=== PATIENT | female | born 1985 | race Two or more races ===

== ENCOUNTER 2025-01-24 09:22 | Emergency (ER) | payer OTHER ==
[~2025-01-24] VITALS: Ht 152.4 cm; Wt 99.8 kg
[2025-01-24 10:51] VITALS: BP 127/86; PULSE 86; RESP 18; TEMP 98.7; O2SAT 100
[2025-01-24] MEDS ORDERED: CLIN1CAP70 PO (10:57)
[2025-01-24] MEDS ORDERED: ERY05OO OP (10:57)
--- NOTE | 2025-01-24 10:58 | ED.PDOC ---
History of Present Illness HPI Comments 39-year-old female previously healthy presents with 3 days of worsening right eye discharge and erythema around her eye. Patient reports she felt a scratchy in the medial aspect of her eye 3 days ago and since then her eyes continued to worsen. She saw her primary care doctor who prescribed her eyedrops however the pharmacy did not have them to fill. Chief Complaint: Eye Problem Time Seen by MD: 09:53 Allergies: Coded Allergies: NO KNOWN ALLERGIES (Unverified , 01/24/25) Mode of Arrival: Ambulatory All Other Systems: Reviewed and Negative Physical Exam General Appearance: Normal HEENT: PERRL/EOMI, Other (Erythema surrounding the right eye associated with conjunctivitis of the right eye. Patient has normal vision another right eye) Neck: Non-Tender Respiratory: No Respiratory Distress Cardiovascular: No Edema Breast Exam: Deferred Gastrointestinal: NOT DONE Genitalia: Deferred Pelvic: Deferred Rectal: Deferred Extremities: Normal range of motion Neurologic: No Motor Deficits Cerebellar Function: NOT DONE Reflexes: NOT DONE Skin: Other (erythema and warmth around the right eye) Lymphatic: NOT DONE Was a procedure done? Was a procedure done?: No Differential Dx Considerations may include: Periorbital cellulitis my shingles, viral syndrome X-Ray, Labs, Meds, VS Vital Signs Date Time Temp Pulse Resp B/P (MAP) Pulse Ox O2 Delivery O2 Flow Rate FiO2 01/24/25 09:50 98.6 82 18 163/91 (115) 98 Time of 1ST Reevaluation: 10:54 Reevaluation 1ST: Unchanged Patient Education/Counseling: Diagnosis, Treatment Family Education/Counseling: No Family Present Departure 1 Departure Time of Disposition: 10:54 (Patient likely with jose enrique orbital cellulitis. We will empirically start patient on antibiotics and outpatient follow up with our outpatient doctor this week.) Impression: Primary Impression: Periorbital cellulitis of right eye Disposition: 01 HOME / SELF CARE / HOMELESS Condition: Stable Additional Instructions: You have cellulitis. This is a skin infection. You were prescribed antibiotics. Please take as directed. You can take tylenol and motrin as needed for pain. It is important that you follow up with your regular doctor within one week to ensure you are doing well. If your symptoms worsen or you have any other concerns then please return to the ER. e-Prescriptions Erythromycin (Erythromycin) 5 Mg/Gm Oin 1 MG OP QID for 7 Days, #28 OIN Prov: SELMA GONZÁLES MD 01/24/25 Clindamycin Hcl (Clindamycin Hcl) 300 Mg Cap 600 MG PO TID for 7 Days, #21 CAP Prov: SELMA GONZÁLES MD 01/24/25 Discharged With: Self Critical Care Note Critical Care Time?: No Stability Stability form required: No Heart Score Heart Score: Heart Score Response (Comments) Value History N/A 0 EKG N/A 0 Age N/A 0 Risk Factors N/A 0 Troponin N/A 0 Total 0 SELMA GONZÁLES MD Jan 24, 2025 10:58
[2025-01-24] MEDS: CLINDAMYCIN HCL 150 MG CAP PO ONE (11:06)
[2025-01-24] MEDS: ERYTHROMY OPTH OINT 5mg/gm 1gm or 3.5gm tube OP ONE (11:06)
== END 2025-01-24 11:12 | disposition home or self-care (01) ==
LOC: ER 09:22
DX: L03.213 Periorbital cellulitis (principal)